=== PATIENT | male | born 1945 | race American Indian/Alaskan Native ===

== ENCOUNTER 2018-03-27 07:10 | Emergency (ER) | payer OTHER ==
[~2018-03-27] VITALS: Ht 175.3 cm; Wt 79.4 kg
[~2018-03-27 07:10] MED LIST: AMLO10 PO; ASCO500 PO; ASPI81EC PO; ATOR20 PO; Augmentin 875-1 EACH PO; BUME2 PO; CALCAVITD PO; CHOL10002 PO; FISH1000 PO; FURO40 PO; GARLIC; IRON150C PO; Jantoven5 MG PO; MAGOXI400 PO; METO25ER PO; MULVITB&C PO; NIAC500 PO; ONDA4 PO; POTCHL10ER PO; Polytrim Eye Dr10 ML BOTHEYES; RANI150 PO; SELENIUM200 MC1 PO; SIMV10 PO; Super B Comple150 MG PO; TAMS.4ER PO; TOCO1000 PO; TOCO400 PO
[2018-03-27] MEDS ORDERED: Polytrim Eye Dr10 ML BOTHEYES (08:53)
== END 2018-03-27 09:07 | disposition home or self-care (01) ==
LOC: ER 07:10
DX: J02.9 Acute pharyngitis, unspecified (principal); H10.021 Other mucopurulent conjunctivitis, right eye; I10 Essential (primary) hypertension; Z79.899 Other long term (current) drug therapy; Z79.01 Long term (current) use of anticoagulants
CPT/HCPCS: 71046; 87081; 87430; 99283; J1100

== ENCOUNTER → 2020-07-05 | Outpatient (CLI) | payer OTHER | END | disposition home or self-care (01) | LOC: PLD 12:51 → LAB SHORT 12:51 | DX: R23.4 Changes in skin texture (principal) | CPT/HCPCS: 88305 ==

== ENCOUNTER → 2022-04-15 | Outpatient (CLI) | payer OTHER ==
[2022-04-15 14:09] LABS: Albumin, Blood 3.7 g/dL (3.4-5.0); Albumin/Globulin Ratio 1.2 (0.8-1.8); Bilirubin, Direct 0.1 mg/dL (0.0-0.3); Bilirubin, Indirect 0.4 mg/dL (0.1-0.7); Bilirubin, Total 0.5 mg/dL (0.1-1.0); Bun/Creatinine Ratio 17.9 (12.0-20.0); Calcium, Blood 9.1 mg/dL (8.5-10.1); Creatinine, Blood 0.78 mg/dL (0.60-1.20); Potassium, Blood 4.2 mmol/L (3.5-5.5); Total Protein, Blood 6.7 g/dL (6.4-8.2)
[2022-04-15 14:43] LABS: Percent Saturation 19.9 % (20.0-50.0)
== END ==
LOC: LAB SHORT 13:21
PROVIDERS: Internal Medicine Hematology & Oncology
DX: E85.9 Amyloidosis, unspecified (principal); D64.9 Anemia, unspecified; E53.8 Deficiency of other specified B group vitamins
CPT/HCPCS: 80053; 82248; 82607; 82728; 82746; 83540; 83550

== ENCOUNTER → 2022-08-22 | Outpatient (CLI) | payer OTHER ==
[2022-08-22 14:59] LABS: BASOPHILS ABSOLUTE AUTO 0.04 K/mm3 (0.00-0.23); BASOPHILS PERCENT AUTO 0 % (0-2); EOSINOPHILS ABSOLUTE AUTO 0.04 K/mm3 (0.00-0.68); EOSINOPHILS PERCENT AUTO 0 % (0-6); Hemoglobin 14.6 g/dL (13.5-17.5); IMMATURE GRAN ABSOLUTE AUTO 0.07 K/mm3 (0.00-0.10); IMMATURE GRAN PERCENT AUTO 1 % (0-1); LYMPHOCYTES ABSOLUTE AUTO 1.12 K/mm3 (0.84-5.20); LYMPHOCYTES PERCENT AUTO 9 % (21-46); MONOCYTES ABSOLUTE AUTO 1.05 K/mm3 (0.16-1.47); MONOCYTES PERCENT AUTO 8 % (4-13); Mean Corpuscular HGB 31.8 pg (26.0-34.0); Mean Corpuscular HGB Conc 34.8 g/dL (31.5-36.5); Mean Corpuscular Volume 92 fL (80-100); Mean Platelet Volume 10.3 fL (9.1-12.4); NEUTROPHILS ABSOLUTE AUTO 10.28 K/mm3 (1.96-9.15); NEUTROPHILS PERCENT AUTO 82 % (41-73); Platelet Count 190 K/mm3 (150-400); RDW Coefficient Variation 13.4 % (11.7-14.2); Red Blood Cell Count 4.59 M/mm3 (4.30-5.90)
[2022-08-22 15:11] LABS: Albumin, Blood 3.7 g/dL (3.4-5.0); Albumin/Globulin Ratio 0.9 (0.8-1.8); Bilirubin, Total 0.8 mg/dL (0.1-1.0); Bun/Creatinine Ratio 12.4 (12.0-20.0); Creatinine, Blood 1.13 mg/dL (0.60-1.20); Globulin, Blood 3.9 g/dL (2.2-4.0); Potassium, Blood 3.8 mmol/L (3.5-5.5); Total Protein, Blood 7.6 g/dL (6.4-8.2)
== END | disposition home or self-care (01) ==
LOC: LAB SHORT 14:53 → LAB 14:53
PROVIDERS: General Practice
DX: E11.9 Type 2 diabetes mellitus without complications (principal); R10.31 Right lower quadrant pain
CPT/HCPCS: 80053; 82150; 83036; 85025

== ENCOUNTER 2022-09-03 22:57 | Inpatient (IN) | payer OTHER ==
[~2022-09-03] VITALS: Ht 175.3 cm; Wt 80.1 kg
[2022-09-03 23:16] LABS: PCO2 Arterial 35.6 mmHg (35-45); PO2 Arterial 68.8 mmHg (80-100); pH Blood Arterial 7.45 (7.35-7.45)
[2022-09-03 23:20] LABS: BASOPHILS ABSOLUTE AUTO 0.06 K/mm3 (0.00-0.23); BASOPHILS PERCENT AUTO 1 % (0-2); EOSINOPHILS ABSOLUTE AUTO 0.11 K/mm3 (0.00-0.68); EOSINOPHILS PERCENT AUTO 1 % (0-6); Hemoglobin 12.4 g/dL (13.5-17.5); IMMATURE GRAN ABSOLUTE AUTO 0.09 K/mm3 (0.00-0.10); IMMATURE GRAN PERCENT AUTO 1 % (0-1); LYMPHOCYTES ABSOLUTE AUTO 1.33 K/mm3 (0.84-5.20); LYMPHOCYTES PERCENT AUTO 11 % (21-46); MONOCYTES ABSOLUTE AUTO 0.86 K/mm3 (0.16-1.47); MONOCYTES PERCENT AUTO 7 % (4-13); Mean Corpuscular HGB 31.5 pg (26.0-34.0); Mean Corpuscular HGB Conc 33.5 g/dL (31.5-36.5); Mean Corpuscular Volume 94 fL (80-100); NEUTROPHILS PERCENT AUTO 80 % (41-73); Platelet Count 254 K/mm3 (150-400); RDW Coefficient Variation 13.2 % (11.7-14.2); RDW Standard Deviation 45.6 fL (35.1-46.3); Red Blood Cell Count 3.94 M/mm3 (4.30-5.90); White Blood Cell Count 11.95 K/mm3 (4.00-11.30)
[2022-09-03 23:43] LABS: Albumin, Blood 3.4 g/dL (3.4-5.0); Albumin/Globulin Ratio 0.9 (0.8-1.8); Bilirubin, Total 0.5 mg/dL (0.1-1.0); Bun/Creatinine Ratio 24.1 (12.0-20.0); Creatinine, Blood 1.08 mg/dL (0.60-1.20); Globulin, Blood 3.9 g/dL (2.2-4.0); Potassium, Blood 3.6 mmol/L (3.5-5.5); Total Protein, Blood 7.3 g/dL (6.4-8.2)
[2022-09-03] MEDS ORDERED: AMLO5 PO (23:47)
[2022-09-03] MEDS ORDERED: METF500 PO (23:47)
[2022-09-03] MEDS ORDERED: OMEP20ER PO (23:48)
[2022-09-04 00:21] LABS: Influenza B, PCR NEGATIVE (NEGATIVE); Resp Syncytial Virus, PCR NEGATIVE (NEGATIVE); SARS-Cov-2 (COVID-19) PCR, MMC NEGATIVE (NEGATIVE)
[2022-09-04 00:34] LABS: Influenza A, PCR POSITIVE (NEGATIVE)
--- NOTE | 2022-09-04 03:14 | NUR ---
ARRIVAL TO PCU PT BROUGHT TO PCU VIA GURNEY AND ASSISTED OVER TO PCU BED. PT IS A&OX4 WITH PLEASANT AFFECT. HE PARTICIPATES IN CONVERSATION AND ASSISTS WITH CARE. PT ABLE TO REPOSITION SELF INDEPENDENTLY. HE IS ON 4.5L NC WITH SPO2 >93% WITH RR 15-22. HE DENIES SOB AND STS "I FEEL LIKE MY BREATHING IS SO MUCH BETTER ALREADY". PT ON BIPAP IN ED WITH SETTINGS 16/10 FIO2 35%. BIPAP AT BEDSIDE IF NEEDED. LUNGS ARE CLEAR IN UPPER LOBES, DIMINISHED/COARSE IN LOWER LOBES. AFIB WITH LBBB ON MONITOR WITH RATE 90S. BP STABLE WITH MAP >65. PT DENIES CP OR PALPITATIONS. BOWEL TONES HYPOACTIVE, ABDOMEN SOFT. PT REPORTS LAST MEAL WAS THANKSGIVING DINNER AND LAST BM YESTERDAY. PT OFFERED URINAL BUT HAS NOT VOIDED YET. SKIN IS C/D/I. 18G PIV TO LAC. ICE WATER PROVIDED. BED IN LOWEST POSITION, CALL LIGHT WITHIN REACH.
[2022-09-04 03:51] LABS: BASOPHILS ABSOLUTE AUTO 0.02 K/mm3 (0.00-0.23); BASOPHILS PERCENT AUTO 0 % (0-2); EOSINOPHILS PERCENT AUTO 0 % (0-6); Hematocrit 34.4 % (37.0-53.0); Hemoglobin 11.6 g/dL (13.5-17.5); IMMATURE GRAN ABSOLUTE AUTO 0.05 K/mm3 (0.00-0.10); IMMATURE GRAN PERCENT AUTO 1 % (0-1); LYMPHOCYTES ABSOLUTE AUTO 0.35 K/mm3 (0.84-5.20); LYMPHOCYTES PERCENT AUTO 4 % (21-46); MONOCYTES ABSOLUTE AUTO 0.15 K/mm3 (0.16-1.47); MONOCYTES PERCENT AUTO 2 % (4-13); Mean Corpuscular HGB 31.4 pg (26.0-34.0); Mean Corpuscular HGB Conc 33.7 g/dL (31.5-36.5); Mean Corpuscular Volume 93 fL (80-100); Mean Platelet Volume 10.1 fL (9.1-12.4); NEUTROPHILS ABSOLUTE AUTO 8.46 K/mm3 (1.96-9.15); NEUTROPHILS PERCENT AUTO 94 % (41-73); Platelet Count 208 K/mm3 (150-400); RDW Coefficient Variation 13.2 % (11.7-14.2); RDW Standard Deviation 45.2 fL (35.1-46.3); Red Blood Cell Count 3.69 M/mm3 (4.30-5.90); White Blood Cell Count 9.03 K/mm3 (4.00-11.30)
[2022-09-04 04:26] LABS: Albumin, Blood 3.2 g/dL (3.4-5.0); Albumin/Globulin Ratio 0.8 (0.8-1.8); Bilirubin, Total 0.5 mg/dL (0.1-1.0); Bun/Creatinine Ratio 27.1 (12.0-20.0); Calcium, Blood 8.9 mg/dL (8.5-10.1); Globulin, Blood 3.8 g/dL (2.2-4.0); Potassium, Blood 4.5 mmol/L (3.5-5.5)
--- NOTE | 2022-09-04 05:37 | NUR ---
SHIFT SUMMARY PT REMAINS A&OX4 AND SLEPT FOR A SHORT PERIOD THIS SHIFT. HE REMAINS ON 4.5L NC WITH SPO2 >93%. HE CONTINUES TO DENY SOB. AFIB WITH LBBB ON MONITOR WITH RATE 80S. DENIES CP. ELEVATED TROPONIN WITH MORNING LABS. DR QUINTANA NOTIFIED AND ORDERS RECEIVED. PLAN TO START HEPARIN GTT. CARDIOLOGY CONSULTED. BED IN LOWEST POSITION, CALL LIGHT WITHIN REACH. CONTINUING TO MONITOR AT THIS TIME.
[2022-09-04 06:04] LABS: CHOL/HDL RATIO 4.3; Cholesterol 179 mg/dL (50-200); HDL Cholesterol 42 mg/dL (>39); LDL/HDL RATIO 2.9; Low Density Lipoprotein Chol 121 mg/dL (0-110); Triglycerides 80 mg/dL (30-160); Very Low Density Lipoprot Chol 16 mg/dL (6-32)
[2022-09-04 07:03] LABS: Anti-Xa UFH, PHA Monitoring <0.10 IU/mL; International Normalized Ratio 1.13; Prothrombin Time Results 11.8 Sec (9.7-11.5)
--- NOTE | 2022-09-04 09:23 | NUR ---
Assumed care of pt at 0700. Report received from Fany CHILDRESS. Pt A&O x 4. Answers questions, follows commands, verbalizes needs. Pleasant and cooperative with care. Denies chest pain. Consult out to Dr Em. Pt is currently NPO until plan is given by cardiology. Heparin drip per orders. Pt in droplet isolation for Influenza A.
--- NOTE | 2022-09-04 18:31 | NUR ---
SUMMARY Neuro/Musc/Psych: A&O x 4. Answers questions, follows commands, verbalizes needs. Pleasant and cooperative with care. Able to stand and use bedside commode. Spouse visited for majority of day. Resp: Lungs clear, dim in bases. Initially on 4.5 LPM NC. Currently on room air. Continuous oximetry in place. SpO2 90% or greater. Dry cough. Cardiac: Afib, rate in 80s. Earlier had tachycardia after drinking coffee. Pt noted he had been drinking less water than typical. Encouraged PO intake of fluids and he rate has been stable since. Denies chest pain. GI//Skin: No changes since initial assessment Remains PCU status, overall, pt states he feels back to his typically self and looks forward to going home soon.
--- NOTE | 2022-09-04 20:00 | NUR ---
ASSUMED CARE OF PT AT 1915. REPORT RECEIVED INSIDE DOORWAY TO ROOM. PT WAS AWAKE AND ACKNOWLEDGE REPORT. PT ALERT AND ORIENTED. PLEASANT AND COOPERATIVE WITH CARE AND ASSESSMENT. NO COMPLAINTS OF CHEST PAIN. DOES HAVE DRY COUGH WHEREAS HE BECOMES DYSPNEIC. DID REQUIRE 2 L/M O2 TO BE PLACED. WILL REVIEW CHART AND PLAN OF CARE FOR THIS PT.
--- NOTE | 2022-09-04 23:38 | NUR ---
PT WAS USING HIS URINAL AND UNFORTUANATELY SPILLED. DID REQUIRE FULL BED CHANGE WITH BEDBATH DONE. STARTED 18 GAUGE IV IN RIGHT FOREARM SECONDARY TO ADDITION IV ACCESS NEED. ZITHROMYCIN AND ROCEPHIN INFUSED. DID ADMINISTER SOLUMEDROL THROUGH IV WELL. PT DOES STATE THAT WITH ZITHROMAX, HIS SITE WAS SOMEWHAT TENDER. SLOWED ZITHROMAX RATE SLOWER WHICH PT STATES HAS HELPED. IV CONTINUES TO EASILY DRAW BLOOD. WILL CONTINUE TO MONITOR. TEACHING DONE ON SELF AWARENESS OF REACTION TO ANTIBIOTIC THERAPIES.
--- NOTE | 2022-09-05 03:32 | NUR ---
PT CONTINUES ON HEPARIN DRIP. HAS NO COMPLAINTS OF CHEST PAIN OR PRESSURE. O2 ON AT 4 L/M WHILE SLEEPING TO MAINTAIN > 90 PERCENT SATURATIONS. WILL CONTINUE TO MONITOR PT.
--- NOTE | 2022-09-05 06:28 | NUR ---
PT HAS HAD GOOD OUTPUT FROM PATTEN CATHETER. HAS BEEN ABLE TO SLEEP SOME. NO COMPLAINTS OF CHEST PAIN OR PRESSURE. REMAINS ON ROOM AIR AND MAINTAINS > 90 PERCENT SATURATION. MEDICATED PT WITH 10 MG HYDRALAZINE FOR SBP > 170. RECHECK SHOWS SBP 150'S. PT HAS BEEN ABLE TO MOVE ABOUT BED ON HIS OWN. NPO SINCE 0 PENDING PROBABLE ANGIOGRAM. WILL CONTINUE TO MONITOR PT, AND WILL REPORT OFF TO ONCOMING RN.
--- NOTE | 2022-09-05 06:34 | NUR ---
PT HAS BEEN ABLE TO REST SOME THIS NIGHT. HAS HAD LESS EPISODES OF HACKY TYPE COUGH. 4 L/M O2 WHILE ASLEEP TO MAINTAIN SATURATIONS > 90 PERCENT. WHEN PT IS AWAKE HAS MUCH LESS O2 DEMAND. CONTINUES ON HEPARIN DRIP WHICH IS MANAGED BY PHARMACY. HAVE BEEN ABLE TO DO BLOOD DRAWS FROM NEW 18 GAUGE IV. PT VOIDS Q.S. WILL CONTINUE TO MONITOR PT, AND WILL REPORT OFF TO ONCOMING RN.
--- NOTE | 2022-09-05 17:08 | NUR ---
SHIFT SUMMARY PT REMAINS ALERT AND ORIENTED. BP STABLE. HR REMAINS AFIB 90'S. O2 TITRATED DOWN TO 2L NC WITH SATS >90%. PT HAS DENIED ANY PAIN THIS SHIFT. PT UP TO RECLINER MOST OF SHIFT. PT ABLE TO VOID USING THE URINAL. WILL CONTINUE TO MONITOR AND REPORT TO ONCOMING RN
--- NOTE | 2022-09-06 02:11 | NUR ---
UPDATE PT'S HR HAS SLOWLY DECREASED OVER THE COURSE OF THE SHIFT FROM THE 80'S-90'S TO HOLDING STEADILY IN THE 50-60'S. HOWEVER PT HR HAS HAD EPISODES WHERE IT HAS TOUCHED INTO THE 40'S. PT APPEARS TO BE ASYMPOMATIC FOR HE DOES NOT REPORT ANY DIZZYNESS, WEAKNESS, OR LIGHTHEADNESS. NO CP OR PRESSURE REPORTED WELL. AN EKG WAS ALSO CONDUCTED THAT SHOWS AFIB WITH SLOW VENTRICULAR RESPONSE. DR. QUINTANA NOTIFIED WHO ORDERED A FOLLOW UP EKG IN THE AM AND TO CONTINUE TO MONITOR THE PT. NO FUTHER ORDERS FROM MD AT THIS TIME
[2022-09-06 03:25] LABS: BASOPHILS PERCENT AUTO 0 % (0-2); EOSINOPHILS PERCENT AUTO 0 % (0-6); Hematocrit 31.7 % (37.0-53.0); Hemoglobin 10.7 g/dL (13.5-17.5); IMMATURE GRAN ABSOLUTE AUTO 0.03 K/mm3 (0.00-0.10); IMMATURE GRAN PERCENT AUTO 0 % (0-1); LYMPHOCYTES ABSOLUTE AUTO 1.23 K/mm3 (0.84-5.20); LYMPHOCYTES PERCENT AUTO 15 % (21-46); MONOCYTES ABSOLUTE AUTO 0.36 K/mm3 (0.16-1.47); MONOCYTES PERCENT AUTO 4 % (4-13); Mean Corpuscular HGB 31.6 pg (26.0-34.0); Mean Corpuscular HGB Conc 33.8 g/dL (31.5-36.5); Mean Corpuscular Volume 94 fL (80-100); Mean Platelet Volume 9.9 fL (9.1-12.4); NEUTROPHILS ABSOLUTE AUTO 6.85 K/mm3 (1.96-9.15); NEUTROPHILS PERCENT AUTO 81 % (41-73); Platelet Count 199 K/mm3 (150-400); RDW Coefficient Variation 13.7 % (11.7-14.2); RDW Standard Deviation 47.1 fL (35.1-46.3); Red Blood Cell Count 3.39 M/mm3 (4.30-5.90); White Blood Cell Count 8.47 K/mm3 (4.00-11.30)
[2022-09-06 03:48] LABS: Albumin, Blood 2.7 g/dL (3.4-5.0); Albumin/Globulin Ratio 0.8 (0.8-1.8); Bilirubin, Total 0.2 mg/dL (0.1-1.0); Bun/Creatinine Ratio 29.7 (12.0-20.0); Calcium, Blood 8.6 mg/dL (8.5-10.1); Creatinine, Blood 0.94 mg/dL (0.60-1.20); Globulin, Blood 3.3 g/dL (2.2-4.0); Potassium, Blood 4.4 mmol/L (3.5-5.5)
--- NOTE | 2022-09-06 06:28 | NUR ---
SHIFT SUMMARY PT IS A/Ox4 AND IS COOPERATIVE WITH CARE PROVIDED BY STAFF. HR HAS FLUCTUATED T/O THE NIGHT STARTING IN THE 80-90'S AND THEN DROPPING DOWN TO THE 40-60'S TOWARDS THE MIDDLE OF THE SHIFT. PT DOES NOT REPORT ANY DIZZYNESS, WEAKNESS, OR LIGHTHEADEDNESS. BP REMAINED STABLE T/O THE SHIFT. EKG WAS CONDUCTED. MD WAS NOTIFIED AND ORDERED FOLLOW UP EKG THIS AM AND TO CONTINUE TO MONITOR THE PT. RESPIRATORY ALANIS, PT HAS MAINTAINED SPO2 >94% ON 1L OF O2 VIA NC WITH NO SOB OR DYSPNEA REPORTED. HEPARIN gtt CONTINUED T/O THE NIGHT ORDERD PER EMAR. PT USES URINAL INDEPENDENTLY AND HAD GOOD URINE OUTPUT. MORNING LABS SHOWED BNP CONTINUES TO TREND UP. NADN T/O THE SHIFT
--- NOTE | 2022-09-06 17:21 | NUR ---
SHIFT SUMMARY PT REMAINS ALERT AND ORIENTED. HR HAS BEEN AFIB ALL SHIFT IN THE 70-80'S. PT UP TO URINATE THIS SHIFT AND HEART RATE INCREASED TO 160'S, BUT WITHIN 1 MINUTE CAME BACK DOWN TO THE 90'S. AFTER THAT, PT WAS ABLE TO TOLERATE WALKING TO THE BATHROOM WITHOUT INCREASE IN HEART RATE. PT TOLERATED SHOWER THIS SHIFT. PT TITRATED DOWN TO ROOM AIR WITH SATS REMAINING ABOVE 90%. PT HAS DENIED PAIN ALL SHIFT. WILL CONTINUE TO MONITOR AND REPORT TO ONCOMING RN
--- NOTE | 2022-09-06 22:40 | NUR ---
UPDATE CBG THIS PM CAME BACK 352. INSULIN WAS GIVEN ORDERED PER EMAR. DR. PEREZ NOTIFIED. ORDED REPEAT GLUCOSE CHECK AT [facility] AND TO NOTIFY HER OF THE RESULTS.
--- NOTE | 2022-09-06 23:22 | NUR ---
UPDATE PT SAT UP/DANGLED TO VOID IN TO THE URINAL WHEN HIS HR JUMPED UP TO 180'S AND OCCASIONALLY TOUCHED THE MID 190'S. THIS EVENT LASTED ONLY A LITTLE OVER TWO MINUTES. PT APPEARED TO BE ASYMPTOMATIC OF THE EVENT FOR HE DID NOT COMPLAIN OF ANY DIZZYNESS, LIGHTHEADEDNESS, CP OR PRESSURE. BP REMAINED STABLE WITH SBP IN THE 140'S. HE WAS LUCID AND HELD A CONVERSATION WIH ME THE WHOLE TIME PT HR STARTED TO TREND DOWN TO THE 160'S AND ONCE HE LAID DOWN HIS HR RETURNED TO THE 70-100'S. DR. PEREZ WAS NOTIFIED OF THE EVENT. MD ORDERED TO CONTINUE TO MONITOR THE PT AND TO NOTIFIY HER IF EVENT REOCCURS.
--- NOTE | 2022-09-07 04:43 | NUR ---
SHIFT SUMMARY PT IS A/Ox4 AND IS COOPERATIVE WITH CARE PROVIDED BY STAFF. HR CONTINUES TO VARY T/O THE NIGHT STARTING IN THE 80-100'S AND THEN DROPPING DOWN TO THE 50-60'S. FURTHER MORE, PT HAD AN EPISODE WHEN HE WAS ATTEMPTING TO USE THE URINAL WHERE HIS HR JUMPED TO THE 180'S AND EVEN TOUCHED THE 190'S. MD WAS NOTIFIED AND PT APPEARED ASYMPOMATIC HOWEVER. SEE UPDATE NOTED DETAILING EVENT. BP HAS REMAINED STABLE T/O THE SHIFT WITH NO COMPLAINTS OF CP OR PRESSURE. MAINTAINED SPO2 >94% ON RA WITH SOME SOB WITH AMBULATION. PT ALSO DESATS WITH ABULATION, BUT RECOVERS QUICKLY. PT USES URINAL INDEPENDENTLY AND HAD GOOD URINE OUTPUT. NADN T/O THE SHIFT
[2022-09-07 05:21] LABS: BASOPHILS ABSOLUTE AUTO 0.01 K/mm3 (0.00-0.23); BASOPHILS PERCENT AUTO 0 % (0-2); EOSINOPHILS ABSOLUTE AUTO 0.01 K/mm3 (0.00-0.68); EOSINOPHILS PERCENT AUTO 0 % (0-6); Hematocrit 33.7 % (37.0-53.0); Hemoglobin 11.5 g/dL (13.5-17.5); IMMATURE GRAN ABSOLUTE AUTO 0.07 K/mm3 (0.00-0.10); IMMATURE GRAN PERCENT AUTO 1 % (0-1); LYMPHOCYTES ABSOLUTE AUTO 1.51 K/mm3 (0.84-5.20); LYMPHOCYTES PERCENT AUTO 17 % (21-46); MONOCYTES ABSOLUTE AUTO 0.43 K/mm3 (0.16-1.47); MONOCYTES PERCENT AUTO 5 % (4-13); Mean Corpuscular HGB 31.5 pg (26.0-34.0); Mean Corpuscular HGB Conc 34.1 g/dL (31.5-36.5); Mean Corpuscular Volume 92 fL (80-100); Mean Platelet Volume 10.5 fL (9.1-12.4); NEUTROPHILS ABSOLUTE AUTO 7.02 K/mm3 (1.96-9.15); NEUTROPHILS PERCENT AUTO 78 % (41-73); Platelet Count 214 K/mm3 (150-400); RDW Coefficient Variation 13.2 % (11.7-14.2); RDW Standard Deviation 45.1 fL (35.1-46.3); Red Blood Cell Count 3.65 M/mm3 (4.30-5.90); White Blood Cell Count 9.05 K/mm3 (4.00-11.30)
[2022-09-07 05:46] LABS: Bun/Creatinine Ratio 30.3 (12.0-20.0); Calcium, Blood 8.9 mg/dL (8.5-10.1); Creatinine, Blood 0.99 mg/dL (0.60-1.20); Potassium, Blood 4.3 mmol/L (3.5-5.5)
--- NOTE | 2022-09-07 08:45 | NUR ---
UPDATE PT UP TO BATHROOM WITH SBA. HEART RATE INCREASED TO THE 170'S. PT STATES FEELING DIZZY. HEART RATE BACK DOWN TO 90'S WITHIN MINUTES. SPOKE WITH CARBON CAPTURE POWER PLANT ENGINEER AND NEW ORDERS FOR METOPROLOL PLACED. WILL MEDICATED PER EMAR.
--- NOTE | 2022-09-07 17:27 | NUR ---
SHIFT SUMMARY PT REMAINS ALERT AND ORIENTED. SATS REMAIN ABOVE 90% ON RA. BP STABLE. HR AFIB 80'S AT REST. WITH ACTIVITY, HEART RATE INCREASES TO 130'S AT TIMES, BUT COMES DOWN TO 80'S WITHIN MINUTES. PT DENIES ANY PAIN. PT STATES HE WOULD FEEL MORE COMFORTABLE STAYING TONIIGHT AND DISCHARGING TOMORROW. WILL CONTINUE TO MONITOR AND REPORT TO ONCOMING RN
[2022-09-08 04:48] LABS: BASOPHILS ABSOLUTE AUTO 0.01 K/mm3 (0.00-0.23); BASOPHILS PERCENT AUTO 0 % (0-2); EOSINOPHILS ABSOLUTE AUTO 0.02 K/mm3 (0.00-0.68); EOSINOPHILS PERCENT AUTO 0 % (0-6); Hematocrit 37.7 % (37.0-53.0); IMMATURE GRAN ABSOLUTE AUTO 0.11 K/mm3 (0.00-0.10); IMMATURE GRAN PERCENT AUTO 1 % (0-1); LYMPHOCYTES ABSOLUTE AUTO 1.73 K/mm3 (0.84-5.20); LYMPHOCYTES PERCENT AUTO 17 % (21-46); MONOCYTES ABSOLUTE AUTO 0.49 K/mm3 (0.16-1.47); MONOCYTES PERCENT AUTO 5 % (4-13); Mean Corpuscular HGB 31.4 pg (26.0-34.0); Mean Corpuscular HGB Conc 34.5 g/dL (31.5-36.5); Mean Corpuscular Volume 91 fL (80-100); Mean Platelet Volume 10.3 fL (9.1-12.4); NEUTROPHILS ABSOLUTE AUTO 7.97 K/mm3 (1.96-9.15); NEUTROPHILS PERCENT AUTO 77 % (41-73); Platelet Count 242 K/mm3 (150-400); RDW Coefficient Variation 13.1 % (11.7-14.2); RDW Standard Deviation 43.3 fL (35.1-46.3); Red Blood Cell Count 4.14 M/mm3 (4.30-5.90); White Blood Cell Count 10.33 K/mm3 (4.00-11.30)
[2022-09-08 05:04] LABS: Bun/Creatinine Ratio 29.4 (12.0-20.0); Creatinine, Blood 0.99 mg/dL (0.60-1.20); Potassium, Blood 4.1 mmol/L (3.5-5.5)
--- NOTE | 2022-09-08 06:19 | NUR ---
ORNAMENTAL METALWORK DESIGNER SUMMARY PT IS ALERT AND ORIENTED COMMUNICATING APPROPRIATELY W STAFF. PT'S TELE SHOWING AFIB 60'S WHILE AT REST BUT EACH TIME HE STOOD TO USE HIS URINAL HIS HR JUMPED BETWEEN 170-200, PT ASYMPTOMATIC AT THIS TIME DENYING ANY PALPATAIONS OR DIZZINESS. BP STABLE THIS SHIFT. O2 SATS >92% ON RM AIR THIS SHIFT. PT AFEBRILE THIS SHIFT. PT ABLE TO SLEEP COMFORTABLY FOR MOST OF THE SHIFT W CALL LIGHT WITHIN REACH. WILL REPORT TO ONCOMING RN.
--- NOTE | 2022-09-08 08:58 | NUR ---
0844 - Notified Dr. Henry at bedside of pt with HR into 180s with ambulation and new ST alarms this morning. Pt initially denied chest pain but endorsed "twinge" while MD in room. Orders received for EKG. Other VSS
[2022-09-08] MEDS ORDERED: ATOR40TA PO (13:59)
[2022-09-08] MEDS ORDERED: ELIQUIS5 M2 PO (13:59)
[2022-09-08] MEDS ORDERED: AZIT500 PO (14:00)
[2022-09-08] MEDS ORDERED: NITR.4SL SL (14:01)
[2022-09-08] MEDS ORDERED: LISI5 PO (14:01)
[2022-09-08] MEDS ORDERED: FURO40 PO (14:01)
[2022-09-08] MEDS ORDERED: AMOCLA875 PO (14:01)
[2022-09-08] MEDS ORDERED: SPIR25 PO (14:02)
[2022-09-08] MEDS ORDERED: PRED20 PO (14:02)
--- NOTE | 2022-09-08 15:56 | NUR ---
1248 - SPOKE W/ DR SMALLS TO CONFIRM PLAN TO DISCHARGE AND FOLLOW UP WITH THIS MORNINGS EKG. PER MD D/C ORDERS TO BE PUT IN. 9835 - D/C ORDERS COMPLETE, MEDICATIONS SENT TO [facility] PER PT REQUEST. ALL DISCHARGE INSTRUCTIONS WENT OVER AT BEDSIDE BY THIS RN WITH PT AND SPOUSE. PT AND S/O VOICED UNDERSTANDING AND ALL QUESTIONS ANSWERED. IV REMOVED AND PT ESCORTED VIA WHEELCHAIR TO PERSONAL VEHICLE BY ANG GUNDERSON CNA.
== END 2022-09-08 15:01 | disposition home or self-care (01) | DRG 193 ==
LOC: ER 22:57 → PCU 09-04 02:48
PROVIDERS: Family Medicine; Hospitalist; Student in an Organized Health Care Education/Training Program; ADMIT Internal Medicine
PROC: 5A09357 Assistance with Respiratory Ventilation, Less than 24 Consecutive Hours, Continuous Positive Airway Pressure (ICD-10-PCS; principal; 2022-09-04)
DX: J10.01 Influenza due to other identified influenza virus with the same other identified influenza virus pneumonia (principal); I21.A1 Myocardial infarction type 2; J96.01 Acute respiratory failure with hypoxia; J44.0 Chronic obstructive pulmonary disease with (acute) lower respiratory infection; J44.1 Chronic obstructive pulmonary disease with (acute) exacerbation; I48.20 Chronic atrial fibrillation, unspecified; Z94.81 Bone marrow transplant status; I42.9 Cardiomyopathy, unspecified; I50.22 Chronic systolic (congestive) heart failure; Z20.822 Contact with and (suspected) exposure to COVID-19; I11.0 Hypertensive heart disease with heart failure; E11.9 Type 2 diabetes mellitus without complications; K21.9 Gastro-esophageal reflux disease without esophagitis; E78.5 Hyperlipidemia, unspecified; Z85.820 Personal history of malignant melanoma of skin; I25.10 Atherosclerotic heart disease of native coronary artery without angina pectoris; M19.90 Unspecified osteoarthritis, unspecified site; Z90.49 Acquired absence of other specified parts of digestive tract; Z87.891 Personal history of nicotine dependence; Z79.899 Other long term (current) drug therapy; Z79.84 Long term (current) use of oral hypoglycemic drugs; I08.0 Rheumatic disorders of both mitral and aortic valves; I44.7 Left bundle-branch block, unspecified; Z28.21 Immunization not carried out because of patient refusal
CPT/HCPCS: 0241U; 36415; 36600; 71045; 71046; 80048; 80053; 80061; 82803; 82947; 83036; 83605; 83880; 84443; 84484; 85025; 85520; 85610; 87040; 93005; 93010; 93306; 93308; 93321; 94644; 94660; 94664; 94762; 96374; 96375; 97116; 97161; 99285-25; A9270; J0456; J0696; J1644; J2930; J7050; J7512

== ENCOUNTER 2022-10-14 06:06 | Day surgery (SDC) | payer OTHER ==
[~2022-10-14] VITALS: Ht 175.3 cm; Wt 79.0 kg
[~2022-10-14 06:06] MED LIST changes: +AMLO5 PO; +AMOCLA875 PO; +ATOR40TA PO; +AZIT500 PO; +ELIQUIS5 M2 PO; +FERSU300 PO; +LISI5 PO; +METF500 PO; +NITR.4SL SL; +OMEP20ER PO; +PRED20 PO; +SPIR25 PO; +VITAMIN C 500500 MG PO
[2022-10-14] MEDS ORDERED: CLOP75 PO (11:38)
--- NOTE | 2022-10-14 14:43 | NUR ---
DISCHARGE REVIEWED WITH PT AND , BOTH VERBALIZE UNDERSTANDING OF INSTRUCTIONS. PT RADIAL SITE STABLE.
--- NOTE | 2022-10-14 15:42 | NUR ---
PT DRESSED WITH ASSIST FROM . TR BAND REMOVED AND CLOTH DOT PLACED. SALINE LOCK REMOVED WITH CATHETER INTACT. ARM BOARD AND SLING PLACED TO RIGHT ARM. PT TO AND FROM BATHROOM. PT TO PRIVATE VEHICLE WITH ONE STAFF PEWR W/C. R RADIAL SITE STABLE.
== END 2022-10-14 15:58 | disposition home or self-care (01) ==
LOC: MHTC 06:06
DX: I11.0 Hypertensive heart disease with heart failure (principal); I21.4 Non-ST elevation (NSTEMI) myocardial infarction; R94.31 Abnormal electrocardiogram [ECG] [EKG]; R77.8 Other specified abnormalities of plasma proteins; I50.20 Unspecified systolic (congestive) heart failure; I48.11 Longstanding persistent atrial fibrillation; E78.5 Hyperlipidemia, unspecified; Z87.891 Personal history of nicotine dependence; J44.9 Chronic obstructive pulmonary disease, unspecified; E11.9 Type 2 diabetes mellitus without complications; Z79.84 Long term (current) use of oral hypoglycemic drugs
CPT/HCPCS: 76937; 82947; 85347; 93456; 99152; 99153; A9270; C1725; C1769; C1874; C1887; C1894; C9600; J1644; J2250; J3010; J7030; J7050; Q9967

== ENCOUNTER → 2022-10-19 | Outpatient (CLI) | payer OTHER ==
[~2022-10-19] MED LIST changes: +CLOP75 PO
[2022-10-22 15:10] LABS: A/G RATIO 1.3 (0.7-1.7); ALBUMIN 3.6 g/dL (2.9-4.4); ALPHA-1-GLOBULIN 0.2 g/dL (0.0-0.4); ALPHA-2-GLOBULIN 0.7 g/dL (0.4-1.0); BETA GLOBULIN 0.9 g/dL (0.7-1.3); GAMMA GLOBULIN 1.1 g/dL (0.4-1.8); GLOBULIN, TOTAL 2.9 g/dL (2.2-3.9); IMMUNOGLOBULIN A, QN, SERUM 179 mg/dL (61-437); IMMUNOGLOBULIN G, QN, SERUM 898 mg/dL (603-1613); IMMUNOGLOBULIN M, QN, SERUM 84 mg/dL (15-143); M-SPIKE Not Observed g/dL (Not Observed); PROTEIN, TOTAL, SERUM 6.5 g/dL (6.0-8.5)
== END | disposition home or self-care (01) ==
LOC: LAB 11:30 → LAB SHORT 11:30
PROVIDERS: Internal Medicine Hematology & Oncology
DX: E85.9 Amyloidosis, unspecified (principal)
CPT/HCPCS: 82784; 84165; 86334

== ENCOUNTER → 2023-01-18 | Outpatient (CLI) | payer OTHER | END | disposition home or self-care (01) | LOC: LAB 16:36 → LAB SHORT 16:36 | DX: R10.31 Right lower quadrant pain (principal) | CPT/HCPCS: 87086 ==

== ENCOUNTER 2023-03-15 11:41 | Day surgery (SDC) | payer OTHER ==
[~2023-03-15] VITALS: Ht 175.3 cm; Wt 80.5 kg
[~2023-03-15 11:41] MED LIST changes: +FISH OIL 1,2001 EAC7 PO; +Vitamin B-12100 MCG PO
--- NOTE | 2023-03-15 12:36 | NUR ---
SPOKE WITH PATIENT ABOUT LISTED ALLERGY TO CEFEPIME. PATIENT DENIES ALLERGY TO CEFEPIME AND STATES HE HAS NEVER HAD AN ALLERGIC REACTION TO AN ANTIBIOTIC. CEFEPIME REMOVED FROM ALLERGY LIST.
[2023-03-15 13:13] VITALS: BP 161/81
[2023-03-15] MEDS ORDERED: AMLO10 PO (13:23)
--- NOTE | 2023-03-15 13:37 | NUR ---
in Day Surgery VIA W/C, PT STRUGGLES TO BEAR WEIGHTON LEFT LEG. History, Chart, Medications and Allergies reviewed before start of procedure.Patient confirms NPO status and agrees with scheduled surgery. Patient reports completing Chlorhexadine shower X2 prior to admission to hospital.
--- NOTE | 2023-03-15 13:39 | NUR ---
DR. CHANDLER REPORTS TO RN THAT D/T PT'S NON-COMPLIANCE WITH ANTI-COAGULATION THERAPY, SHE IS CANCELLING CASE. PT HAS NOT TAKE ANY OF HIS PRESCRIBED ELIQUIS OR ASA SINCE "THANKSGIVING TIME". PT STATES THAT HE DIDN'T KNOW WHAT THEY MEDS WERE FOR AND THAT IT CAUSED HIM PAIN AND THE PAIN WENT AWAY WHEN HE STOPPED TAKING THEM AND THAT HE DIDN'T LIKE HOW THE (PAVING BED MAKER) WAS TELLING HIM TO DO THIS AND DO THAT"
--- NOTE | 2023-03-15 13:50 | NUR ---
DR. POLLACK AT TO SEE PT. D/T PT'S CARDIAC STENT'S IN 2022 W/O ANTICOAG, CASE IS CANCELLED. PT INSTRUCTED TO CONTACT HIS THEATRE MANAGER, RE-START MEDS AND F/U FOR KNEE SURGERY IN 2023
== END 2023-03-15 23:08 | disposition home or self-care (01) ==
LOC: ORSCMMR 11:41 → ORD 13:20 → ORSCMMR 16:10 → ORD 16:10 → ORSCMMR 23:08
DX: M17.11 Unilateral primary osteoarthritis, right knee (principal); Z53.9 Procedure and treatment not carried out, unspecified reason
CPT/HCPCS: J0171; J0735; J1100; J1885; J2250; J2370; J2405; J2795; J3010; J7120

== ENCOUNTER → 2023-05-11 | Outpatient (CLI) | payer OTHER ==
[2023-05-11 19:31] LABS: Creatinine Urine 24.4 mg/dL (27.00-270.00); Protein, Urine Quantitative 7.5 mg/dL (0.0-11.9)
[2023-05-11 19:34] LABS: Microalbumin, Urine Quant. 32.6 mg/L (0.000-20.000)
== END | disposition home or self-care (01) ==
LOC: LAB SHORT 05:00 → LAB 05:00 → LAB FUT 05-05 15:05
PROVIDERS: Internal Medicine Nephrology
DX: N18.30 Chronic kidney disease, stage 3 unspecified (principal); D63.1 Anemia in chronic kidney disease; N25.81 Secondary hyperparathyroidism of renal origin; E55.9 Vitamin D deficiency, unspecified; E29.1 Testicular hypofunction; R76.9 Abnormal immunological finding in serum, unspecified; R94.5 Abnormal results of liver function studies; R94.6 Abnormal results of thyroid function studies
CPT/HCPCS: 81050; 82043; 82570; 84156

== ENCOUNTER 2024-08-06 11:52 | Inpatient (IN) | payer OTHER ==
[~2024-08-06] VITALS: Ht 175.3 cm; Wt 78.2 kg
[~2024-08-06 11:52] MED LIST changes: -ALDACTONE25 MG PO; -ASPI81CH PO; -FERREX 150150 M1 PO; -Glucophage 500 mg PO; -LOSARTAN POTAS100 M1 PO; -METO50ER PO; -PRAVASTATIN SOD10 M1 PO; -TRAZ50 PO; -XARELTO15 M1 PO
[2024-08-06 12:41] LABS: BASOPHILS ABSOLUTE AUTO 0.02 K/mm3 (0.00-0.23); BASOPHILS PERCENT AUTO 0 % (0-2); EOSINOPHILS PERCENT AUTO 0 % (0-6); Hematocrit 33.1 % (37.0-53.0); IMMATURE GRAN ABSOLUTE AUTO 0.03 K/mm3 (0.00-0.10); IMMATURE GRAN PERCENT AUTO 0 % (0-1); LYMPHOCYTES PERCENT AUTO 7 % (21-46); MONOCYTES ABSOLUTE AUTO 0.41 K/mm3 (0.16-1.47); MONOCYTES PERCENT AUTO 5 % (4-13); Mean Corpuscular HGB 31.9 pg (26.0-34.0); Mean Corpuscular HGB Conc 33.2 g/dL (31.5-36.5); Mean Corpuscular Volume 96 fL (80-100); Mean Platelet Volume 9.6 fL (9.1-12.4); NEUTROPHILS ABSOLUTE AUTO 7.22 K/mm3 (1.96-9.15); NEUTROPHILS PERCENT AUTO 87 % (41-73); Platelet Count 285 K/mm3 (150-400); RDW Standard Deviation 45.7 fL (35.1-46.3); Red Blood Cell Count 3.45 M/mm3 (4.30-5.90); White Blood Cell Count 8.28 K/mm3 (4.00-11.30)
[2024-08-06 12:59] LABS: Albumin, Blood 2.7 g/dL (3.4-5.0); Albumin/Globulin Ratio 0.6 (0.8-1.8); Bilirubin, Total 0.5 mg/dL (0.1-1.0); Bun/Creatinine Ratio 28.2 (12.0-20.0); Calcium, Blood 9.1 mg/dL (8.5-10.1); Creatinine, Blood 1.17 mg/dL (0.60-1.20); Globulin, Blood 4.2 g/dL (2.2-4.0); Total Protein, Blood 6.9 g/dL (6.4-8.2)
[2024-08-06] MEDS ORDERED: Furosemide 10 MG/ML 10ML Vial IV ONE (13:00)
[2024-08-06] MEDS ORDERED: AMLO10 PO (15:05)
[2024-08-06] MEDS ORDERED: TraZODone HCl 50 MG Tab PO PRN (15:05)
[2024-08-06] MEDS ORDERED: ASPI81CH PO (15:06)
[2024-08-06] MEDS ORDERED: JARDIANCE10 MG PO (15:07)
[2024-08-06] MEDS ORDERED: FURO20 PO (15:09)
[2024-08-06] MEDS ORDERED: LOSARTAN POTAS100 M1 PO (15:10)
[2024-08-06] MEDS ORDERED: Glucophage 500 mg PO (15:11)
[2024-08-06] MEDS ORDERED: METO50ER PO (15:12)
[2024-08-06] MEDS ORDERED: OMEP20ER PO (15:13)
[2024-08-06] MEDS ORDERED: FERREX 150150 M1 PO (15:14)
[2024-08-06] MEDS ORDERED: PRAVASTATIN SOD10 M1 PO (15:15)
[2024-08-06] MEDS ORDERED: XARELTO15 M1 PO (15:16)
[2024-08-06] MEDS ORDERED: ALDACTONE25 MG PO (15:16)
[2024-08-06] MEDS ORDERED: TRAZ50 PO (15:17)
[2024-08-06] MEDS ORDERED: FLU VACC TS2024-25(6MOS UP)/PF 45 MCG/0.5 ML SYRINGE IM SCH (15:25)
[2024-08-06] MEDS ORDERED: MetFORMIN HCl 500 mg PO SCH (17:00)
[2024-08-06] MEDS ORDERED: Furosemide 10 MG/ML 4ML Vial IV SCH (18:00)
[2024-08-06] MEDS ORDERED: Metoprolol Tartrate 1 MG/ML 5 ML VIAL IV ONE ×2 (19:00→22:20)
[2024-08-06] MEDS ORDERED: Metoprolol Succinate 50 MG TABCR PO SCH (21:00)
--- NOTE | 2024-08-06 21:00 | NUR ---
ASSUMPTION OF CARE: PATIENT ARRIVED FROM ED ALERT AND ORIENTED, PATTEN PLACED BY ED ORDER OBTAINED BY DR. JEAN FOR CRITICAL I/O. PATIENT HAS BEEN HR AFIB 120-140'S WAS SUSTAINGIN 140-150 UNTIL HE FELL ASLEEP, OBTAINED A 1 X NOW ORDER FROM DR. JEAN, WAS NOT NEEDED HR SUSTAINED BELOW 120 AFTER METOPROLOL XL STARTED TO BECOME MORE EFFECTIVE. SELFREPOSITIONS IN BED. WAS ON 4.5L VIA NC. RR IN THE MID 20'S DYSPNIC AT REST. PLAN OF CARE CONTINUES.
[2024-08-06 22:00] VITALS: BP 149/90
[2024-08-06 22:30] VITALS: BP 130/101
[2024-08-06 23:00] VITALS: BP 126/86
[2024-08-07] VITALS: BP 141/107
[2024-08-07 03:11] VITALS: BP 126/97
--- NOTE | 2024-08-07 03:25 | NUR ---
EOS: PATIENT REMAINS UNCHAGED FROM ASUMPTION OF CARE HR STILL FLUCTUATES WITH EXERTION DRAMATICALLY 110-140'S BUT AT REST WILL DROP TO LOW 100'S. PATIENT WAS TITRATED DOWN TO 3L SPO2 92-94%. PATIENT RR UNDER 20'S WITH REST. STILL DENIES CHEST PAIN AND PRESSURE. NO ACUTE CONCERNS FROM PATIENT ADJUNCT SPANISH INSTRUCTOR AT THIS TIME. PLAN OF CARE CONTINUES.
[2024-08-07 04:03] LABS: BASOPHILS ABSOLUTE AUTO 0.02 K/mm3 (0.00-0.23); BASOPHILS PERCENT AUTO 0 % (0-2); EOSINOPHILS ABSOLUTE AUTO 0.03 K/mm3 (0.00-0.68); EOSINOPHILS PERCENT AUTO 0 % (0-6); Hemoglobin 11.4 g/dL (13.5-17.5); IMMATURE GRAN ABSOLUTE AUTO 0.06 K/mm3 (0.00-0.10); IMMATURE GRAN PERCENT AUTO 1 % (0-1); LYMPHOCYTES ABSOLUTE AUTO 0.91 K/mm3 (0.84-5.20); LYMPHOCYTES PERCENT AUTO 8 % (21-46); MONOCYTES ABSOLUTE AUTO 0.93 K/mm3 (0.16-1.47); MONOCYTES PERCENT AUTO 9 % (4-13); Mean Corpuscular HGB 32.2 pg (26.0-34.0); Mean Corpuscular HGB Conc 34.5 g/dL (31.5-36.5); Mean Corpuscular Volume 93 fL (80-100); Mean Platelet Volume 9.9 fL (9.1-12.4); NEUTROPHILS PERCENT AUTO 82 % (41-73); Platelet Count 310 K/mm3 (150-400); RDW Coefficient Variation 12.7 % (11.7-14.2); RDW Standard Deviation 43.5 fL (35.1-46.3); Red Blood Cell Count 3.54 M/mm3 (4.30-5.90); White Blood Cell Count 10.95 K/mm3 (4.00-11.30)
[2024-08-07 04:23] LABS: Albumin, Blood 2.6 g/dL (3.4-5.0); Albumin/Globulin Ratio 0.6 (0.8-1.8); Bilirubin, Total 0.5 mg/dL (0.1-1.0); Bun/Creatinine Ratio 29.2 (12.0-20.0); Calcium, Blood 9.3 mg/dL (8.5-10.1); Creatinine, Blood 1.2 mg/dL (0.60-1.20); Potassium, Blood 3.6 mmol/L (3.5-5.5); Total Protein, Blood 6.6 g/dL (6.4-8.2)
--- NOTE | 2024-08-07 05:27 | NUR ---
CHEST PAIN: PATIENT WITH SUDDEN ONSET CHEST PAIN INCREASED RR. SPOKE WITH RESIDENT. EKG OBTAINED. CHEST PAIN WAS SHARP AT 8/10, APPROXIAMTELY 15 MINUTES LATER IS SLOWLY CALMING, 4/10 RESIDENT TO BEDSIDE, WILL CONTINUE TO MONITOR. RESIDENT PLACING ORDERS, AWAITING NEW ORDERS.
[2024-08-07] MEDS ORDERED: Omeprazole 20 MG CapCR PO SCH (06:00)
[2024-08-07] MEDS ORDERED: Aspirin 325 MG Tab PO ONE (07:00)
[2024-08-07 07:36] LABS: Anti-Xa UFH, PHA Monitoring <0.10 IU/mL; International Normalized Ratio 1.05; Prothrombin Time Results 11.2 Sec (9.7-11.5)
[2024-08-07] MEDS ORDERED: Heparin Sodium,Porcine/0.5 NS 500 ML IV SCH (07:45)
[2024-08-07] MEDS ORDERED: Heparin Sodium 5000 Units/ML 1ML MDV IV ONE ×3 (07:45→23:40)
[2024-08-07] MEDS ORDERED: Clopidogrel Bisulfate 300 MG Cap PO ONE (08:10)
[2024-08-07 08:20] VITALS: BP 126/74
[2024-08-07] MEDS ORDERED: Potassium Chloride 10 Meq Tablet SA PO SCH (08:30)
[2024-08-07] MEDS ORDERED: Digoxin 0.25 MG/ML 2ML Amp IV SCH (08:30)
[2024-08-07] MEDS ORDERED: Potassium Chloride 20 MEQ TabCR PO SCH (09:00)
[2024-08-07] MEDS ORDERED: Empagliflozin 10 MG TAB PO SCH (09:00)
[2024-08-07] MEDS ORDERED: Enoxaparin 40 MG/0.4 ML SYR SC SCH (09:00)
[2024-08-07] MEDS ORDERED: Pravastatin Sodium 20 MG Tab PO SCH (09:00)
[2024-08-07] MEDS ORDERED: Losartan Potassium 50 MG Tab PO SCH (09:00)
[2024-08-07] MEDS ORDERED: Iron Polysaccharides Complex 150 MG Cap PO SCH (09:00)
[2024-08-07] MEDS ORDERED: Spironolactone 25 MG Tab PO SCH (09:00)
[2024-08-07] MEDS ORDERED: Aspirin 81 MG Chew PO SCH (09:00)
[2024-08-07] MEDS ORDERED: Metoprolol Tartrate 1 MG/ML 5 ML VIAL IV ONE (09:00)
[2024-08-07] MEDS ORDERED: Insulin Human Lispro 100 Units/ML 3ML Syringe SC SCH (11:30)
[2024-08-07 12:30] VITALS: BP 136/87
[2024-08-07] MEDS ORDERED: Dose Adjust by Pharmacy XX STA ×2 (16:53→23:38)
--- NOTE | 2024-08-07 18:40 | NUR ---
SHIFT SUMMARY: PT A&OX4. FOLLOWS COMMANDS AND MAKES NEEDS KNOWN TO STAFF. PT DID NOT GET OUT OUT OF BED TODAY DUE TO TACHYCARDIA AND SOB WITH ANY AMOUNT OF EXERTION. PT WAS STARTED ON A HEPARIN DRIP THIS AM THAT WAS TITRATED UP THIS AFTERNOON PER PHARMACY. PT WAS GIVEN METOPROLOL THIS AM WITH DIG DUE TO BEING IN AFIB RVR AND SUSTAINING. PTS HR IS NOW TRENDING IN THE 100'S. DENIES ANY CP OR SOB. CARDIOLOGY SAW PT THIS AM AND IS PLANNING FOR AN ANGIO TOMORROW OR WEDNESDAY. SANDOR REMAINS IN PLACE FOR ACCURATE I&O'S PER PROVIDER TODAY. PT HAS HAD AN ADEQUATE AMOUNT OF URINE OUTPUT TODAY. NO ACUTE NEURO CHANGES. NO OTHER SIGNIFICANT EVENTS HAPPENED DURING THIS SHIFT. WILL CONTINUE TO CARE FOR PT TILL END OF SHIFT.
[2024-08-07 19:31] VITALS: BP 120/60
--- NOTE | 2024-08-07 21:21 | NUR ---
ASSUMPTION OF CARE AFTER RECEIVING REPORT FROM STEW CHILDRESS, THIS RN ASSUMED CARE AT APPROX 1915. PATIENT SLEEPING DURING INITIAL ENCOUNTER, EASILY AROUSABLE WITH VERBAL STIMULI. ANSWERS ORIENTATION QUESTIONS APPROPRIATELY. PERRLA. IS [place] - HEARING AIDES AT BEDSIDE. MOVES ALL EXTREMITIES EQUALLY WITH GENERALIZED WEAKNESS T/O. BEDREST AT THIS TIME. IS LETHARGIC. AFEBRILE. DENIES PAIN AT THIS TIME. TELEMETRY SHOWING AFIB 90s-110s WITH OCCASIONAL INCREASES TO 120s. BP STABLE, SBP 120s. DENIES CHEST PAIN, PRESSURE. DOES REPORT MILD SHORTNESS OF BREATH AT REST. PO METOPROLOL ADMINISTERED PER EMAR. +1 EDEMA TO BLE. HEPARIN GTT INFUSING PER EMAR. ON 2L VIA NC, SATs >90%. PATTEN CATHETER IN PLACE FOR STRICT I/Os. DRAINING YELLOW URINE TO GRAVITY. Q2H REPOSITIONING. CALL LIGHT IN REACH.
[2024-08-07 23:48] VITALS: BP 138/88
[2024-08-08 02:43] VITALS: BP 134/78
--- NOTE | 2024-08-08 05:31 | NUR ---
SHIFT SUMMARY NO ACUTE EVENTS SINCE ASSUMPTION OF CARE. PATIENT SLEPT THROUGHOUT NIGHT, EASILY AROUSABLE WITH VERBAL STIMULI. TELEMETRY SHOWING AFIB 90s-100s WHILE AWAKE. RATE 60s-80s WITH SLEEP. BP STABLE, SBP 130s. MAP >65. DENIES CHEST PAIN, PRESSURE. SHORTNESS OF BREATH AT REST IMPROVED. HEPARIN GTT INFUSING PER EMAR. REMAINS ON 2L VIA NC, SATs >90%. ATTEMPTED TO TITRATE TO ROOM AIR, BUT SATs <88% ON ROOM AIR WHILE SLEEPING. OCCASIONAL NONPRODUCTIVE COUGH. PATTEN CATHETER DRAINING YELLOW URINE TO GRAVITY. NO BM THIS SHIFT. IS ABLE TO REPOSITION HIMSELF MOSTLY IN BED, BUT Q2H REPOSITIONING FOR LARGER POSITION CHANGES. CALL LIGHT IN REACH. WILL CONTINUE TO MONITOR AND REPORT TO ONCOMING RN.
[2024-08-08] MEDS ORDERED: Pantoprazole Sodium 20 MG Tab PO SCH (06:00)
[2024-08-08 06:03] LABS: BASOPHILS ABSOLUTE AUTO 0.06 K/mm3 (0.00-0.23); BASOPHILS PERCENT AUTO 1 % (0-2); EOSINOPHILS ABSOLUTE AUTO 0.15 K/mm3 (0.00-0.68); EOSINOPHILS PERCENT AUTO 1 % (0-6); Hemoglobin 11.8 g/dL (13.5-17.5); IMMATURE GRAN ABSOLUTE AUTO 0.06 K/mm3 (0.00-0.10); IMMATURE GRAN PERCENT AUTO 1 % (0-1); LYMPHOCYTES ABSOLUTE AUTO 1.43 K/mm3 (0.84-5.20); LYMPHOCYTES PERCENT AUTO 13 % (21-46); MONOCYTES ABSOLUTE AUTO 0.99 K/mm3 (0.16-1.47); MONOCYTES PERCENT AUTO 9 % (4-13); Mean Corpuscular HGB 31.1 pg (26.0-34.0); Mean Corpuscular HGB Conc 32.8 g/dL (31.5-36.5); Mean Corpuscular Volume 95 fL (80-100); Mean Platelet Volume 9.5 fL (9.1-12.4); NEUTROPHILS PERCENT AUTO 75 % (41-73); Platelet Count 321 K/mm3 (150-400); RDW Coefficient Variation 12.8 % (11.7-14.2); RDW Standard Deviation 44.9 fL (35.1-46.3); Red Blood Cell Count 3.79 M/mm3 (4.30-5.90); White Blood Cell Count 10.89 K/mm3 (4.00-11.30)
[2024-08-08 06:29] LABS: Magnesium, Blood 2.2 mg/dL (1.6-2.4)
[2024-08-08 06:30] LABS: Albumin, Blood 2.2 g/dL (3.4-5.0); Albumin/Globulin Ratio 0.5 (0.8-1.8); Bilirubin, Total 0.5 mg/dL (0.1-1.0); Bun/Creatinine Ratio 31.9 (12.0-20.0); Calcium, Blood 8.7 mg/dL (8.5-10.1); Creatinine, Blood 1.19 mg/dL (0.60-1.20); Globulin, Blood 4.3 g/dL (2.2-4.0); Potassium, Blood 3.6 mmol/L (3.5-5.5); Total Protein, Blood 6.5 g/dL (6.4-8.2)
[2024-08-08] MEDS ORDERED: Dose Adjust by Pharmacy XX STA ×3 (07:25→20:47)
[2024-08-08] MEDS ORDERED: Heparin Sodium 5000 Units/ML 1ML MDV IV ONE ×3 (07:30→20:50)
[2024-08-08 08:12] VITALS: BP 136/63
[2024-08-08] MEDS ORDERED: Metoprolol Succinate 25 MG TABCR PO ONE (09:45)
[2024-08-08 13:43] VITALS: BP 107/83
--- NOTE | 2024-08-08 17:27 | NUR ---
END OF SHIFT SUMMARY: PT A&OX4 AND HEARD OF HEARING, DOES HAVE HEARINGS AIDS WITH HIM, AND ACTIVE IN HIS CARE. SATTING >92% ON 2 LITERS VIA NASAL CANNULA. ON TELE SHOWING AFIB WITH RATE IN 80'S, DOES TACH UP WITH EXERTION. TODAY WHEN WORKING WITH PT TACH'D UP TO 150 BUT WAS ABLE TO RECOVER QUICKLY. IS 1 PERSON ASSIST AND THEY RECOMMEND A SNIF UPON DISCHARGE. NEEDED COVERAGE FOR BLOOD SUGARS TODAY AND IS AWARE HE WILL BECOME NPO AT MIDNIGHT FOR AN ANGIOGRAM TOMORROW SOMETIME. HEPARIN GTT RUNNING AT 25UNITS TODAY WITH TWO BOLUS GIVEN PER PHARMACY AND EMAR. HAS BEEN AT BEDSIDE AND FAMILY CAME TODAY. WILL REPORT TO ONCOMING LEAF TINNER RN.
[2024-08-08] MEDS ORDERED: Spironolactone 25 MG Tab PO SCH (18:00)
[2024-08-08 19:16] VITALS: BP 113/72
--- NOTE | 2024-08-08 20:16 | NUR ---
ASSUMPTION OF CARE AFTER RECEIVING REPORT FROM TARYN CHILDRESS, THIS RN ASSUMED CARE AT APPROX 1915. PATIENT ALERT AND ORIENTED X4. IS [place] W/ HEARING AIDES AT BEDSIDE. PERRLA. MOVES ALL EXTREMITIES EQUALLY W/ GENERALIZED WEAKNESS. COMMUNICATES NEEDS EFFECTIVELY. RECEPTIVE TO EDUCATION, ASKS FREQUENT QUESTIONS REGARDING PLAN OF CARE. TELEMETRY SHOWING AFIB 80s-90s. BP STABLE, SBP 110s. MAP >65. RATE INCREASES W/ MOBILITY. SCHEDULED PO METOPROLOL ADMINISTERED PER EMAR. DENIES CHEST PAIN, PRESSUE W/ INCREASES. MILD SHORTNESS OF BREATH. NPO AT MIDNIGHT FOR ANGIO TOMORROW. HEPARIN GTT INFUSING PER EMAR. ON 2L VIA NC, SATs >90%. UP TO CHAIR OR RESTROOM WITH ONE PERSON ASSIST FWW. PATTEN CATHETER IN PLACE DRAINING YELLOW URINE TO GRAVITY. CALL LIGHT IN REACH.
[2024-08-08] MEDS ORDERED: Metoprolol Succinate 50 MG TABCR PO SCH (21:00)
--- NOTE | 2024-08-08 21:12 | NUR ---
MD DUMONT ROUNDING ON UNIT. PATIENT WITHOUT MORNING LAB ORDERS, DISCUSSED WITH MD. ALAS TO REVIEW CHART AND PLACE ORDERS.
[2024-08-08 23:09] VITALS: BP 129/69
[2024-08-09 03:34] VITALS: BP 132/68
[2024-08-09] MEDS ORDERED: Dose Adjust by Pharmacy XX STA ×2 (04:06→10:30)
--- NOTE | 2024-08-09 05:08 | NUR ---
SHIFT SUMMARY NO ACUTE EVENTS SINCE ASSUMPTION OF CARE NOTE. PATIENT SLEPT THROUGHOUT NIGHT, EASILY AROUSABLE WITH VERBAL STIMULI. REPOSITIONING HIMSELF IN BED WITH MINIMAL TO NO ASSIST FROM STAFF. TELEMETRY SHOWING AFIB 50s-60s WITH SLEEP. RATE INCREASE 70s-80s WHEN AWAKE. BP STABLE, SBP 110s-130s. MAP >65. NPO SINCE MIDNIGHT FOR ANGIO TODAY. HEPARIN GTT TITRATED PER PHARMACY. REMAINS ON 2L VIA NC, SATs >90%. PATTEN CATHETER DRAINING YELLOW URINE TO GRAVITY. NO BM THIS SHIFT. CALL LIGHT IN REACH. WILL CONTINUE TO MONITOR AND REPORT TO ONCOMING RN.
[2024-08-09 05:35] LABS: Bun/Creatinine Ratio 31.9 (12.0-20.0); Calcium, Blood 8.9 mg/dL (8.5-10.1); Creatinine, Blood 1.38 mg/dL (0.60-1.20); Potassium, Blood 3.9 mmol/L (3.5-5.5)
[2024-08-09 07:21] VITALS: BP 129/69
[2024-08-09 10:18] LABS: BASOPHILS ABSOLUTE AUTO 0.05 K/mm3 (0.00-0.23); BASOPHILS PERCENT AUTO 1 % (0-2); EOSINOPHILS ABSOLUTE AUTO 0.32 K/mm3 (0.00-0.68); EOSINOPHILS PERCENT AUTO 4 % (0-6); Hematocrit 34.8 % (37.0-53.0); Hemoglobin 11.4 g/dL (13.5-17.5); IMMATURE GRAN ABSOLUTE AUTO 0.04 K/mm3 (0.00-0.10); IMMATURE GRAN PERCENT AUTO 0 % (0-1); LYMPHOCYTES PERCENT AUTO 13 % (21-46); MONOCYTES ABSOLUTE AUTO 0.74 K/mm3 (0.16-1.47); MONOCYTES PERCENT AUTO 8 % (4-13); Mean Corpuscular HGB 31.9 pg (26.0-34.0); Mean Corpuscular HGB Conc 32.8 g/dL (31.5-36.5); Mean Corpuscular Volume 98 fL (80-100); Mean Platelet Volume 9.5 fL (9.1-12.4); NEUTROPHILS ABSOLUTE AUTO 6.65 K/mm3 (1.96-9.15); NEUTROPHILS PERCENT AUTO 74 % (41-73); Platelet Count 311 K/mm3 (150-400); RDW Coefficient Variation 12.6 % (11.7-14.2); RDW Standard Deviation 45.1 fL (35.1-46.3); Red Blood Cell Count 3.57 M/mm3 (4.30-5.90)
[2024-08-09 11:57] VITALS: BP 144/78
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
[2024-08-09 15:57] VITALS: BP 118/68
--- NOTE | 2024-08-09 17:31 | NUR ---
END OF SHIFT SUMMARY: PT IS ALERT AND ORIENTED X4 AND ACTIVE IN HIS CARE. SATTING >92% ON 2 LITERS VIA NASAL CANNULA. ON TELE SHOWING AFIB WITH RATE IN 80'S, DID NOT TACH UP TODAY WHEN WORKING WITH PT/OT. HAD AT BEDSIDE AND WAS NPO FOR MOST OF THE DAY AWAITING ANGIOGRAM DR. TELLEZ CAME BY THEY CANCELLED IT FOR TODAY AND ARE PLANNING HIS ANGIOGRAM 08/10, HE WILL BECOME NPO AT MIDNIGHT. NEEDED COVERAGE FOR BLOOD SUGAR TODAY. DENIED RECCOMENDATION OF SNIF AND HOME HEALTH. PATTEN IS STILL PRESENT AND DRAINING PROPERLY WITH A SECURE/STERILE DEVICE BELOW BLADDER. HEPARIN IS STILL RUNNING AT 27U/KG AND A NEW BAG WAS HUNG. WILL REPORT TO ONCOMING CONCILIATOR RN.
[2024-08-09 20:00] VITALS: BP 141/75
[2024-08-09 23:42] VITALS: BP 129/61
[2024-08-10] VITALS (15 sets, daily range): BP systolic 124–163; BP diastolic 65–92
[2024-08-10 04:18] LABS: BASOPHILS ABSOLUTE AUTO 0.06 K/mm3 (0.00-0.23); BASOPHILS PERCENT AUTO 1 % (0-2); EOSINOPHILS ABSOLUTE AUTO 0.38 K/mm3 (0.00-0.68); EOSINOPHILS PERCENT AUTO 4 % (0-6); Hematocrit 34.7 % (37.0-53.0); Hemoglobin 11.2 g/dL (13.5-17.5); IMMATURE GRAN ABSOLUTE AUTO 0.07 K/mm3 (0.00-0.10); IMMATURE GRAN PERCENT AUTO 1 % (0-1); LYMPHOCYTES ABSOLUTE AUTO 1.27 K/mm3 (0.84-5.20); LYMPHOCYTES PERCENT AUTO 14 % (21-46); MONOCYTES ABSOLUTE AUTO 0.67 K/mm3 (0.16-1.47); MONOCYTES PERCENT AUTO 7 % (4-13); Mean Corpuscular HGB 31.4 pg (26.0-34.0); Mean Corpuscular HGB Conc 32.3 g/dL (31.5-36.5); Mean Corpuscular Volume 97 fL (80-100); Mean Platelet Volume 9.7 fL (9.1-12.4); NEUTROPHILS ABSOLUTE AUTO 6.57 K/mm3 (1.96-9.15); NEUTROPHILS PERCENT AUTO 73 % (41-73); Platelet Count 332 K/mm3 (150-400); RDW Coefficient Variation 12.7 % (11.7-14.2); RDW Standard Deviation 44.9 fL (35.1-46.3); Red Blood Cell Count 3.57 M/mm3 (4.30-5.90); White Blood Cell Count 9.02 K/mm3 (4.00-11.30)
[2024-08-10] MEDS ORDERED: Dose Adjust by Pharmacy XX STA (04:40)
[2024-08-10 04:49] LABS: Albumin, Blood 2.2 g/dL (3.4-5.0); Albumin/Globulin Ratio 0.5 (0.8-1.8); Bilirubin, Total 0.2 mg/dL (0.1-1.0); Bun/Creatinine Ratio 31.1 (12.0-20.0); Calcium, Blood 9.7 mg/dL (8.5-10.1); Creatinine, Blood 1.35 mg/dL (0.60-1.20); Globulin, Blood 4.3 g/dL (2.2-4.0); Potassium, Blood 4.7 mmol/L (3.5-5.5); Total Protein, Blood 6.5 g/dL (6.4-8.2)
--- NOTE | 2024-08-10 06:32 | NUR ---
SHIFT SUMMARY NEURO: A/OX4. WEAK. LUNGS: DIMINISHED IN THE BASES, ON 1LNC WHILE SLEEPING. CARDIAC: BP AND HR STABLE. ON HEPARIN GTT. NPO FOR ANGIO SINCE MIDNIGHT. GI/: PATTEN IN PLACE WITH CLEAR, YELLOW OUTPUT, AVERAGING 75-100ML/HR.
[2024-08-10] MEDS ORDERED: Furosemide 40 MG Tab PO SCH (09:00)
[2024-08-10] MEDS ORDERED: Spironolactone 25 MG Tab PO SCH (09:00)
[2024-08-10] MEDS ORDERED: Empagliflozin 25 MG TAB PO SCH (09:00)
[2024-08-10] MEDS ORDERED: FentaNYL Citrate 50 MCG/ML 2 ML Injection ONE (11:42)
[2024-08-10] MEDS ORDERED: Verapamil HCL 2.5 MG/ML 2ML Injection ONE (11:42)
[2024-08-10] MEDS ORDERED: Heparin Sodium 1000 Units/ML 10ML MDV ONE (11:43)
[2024-08-10] MEDS ORDERED: Midazolam HCl 1MG / ML 2ML Vial ONE (11:43)
[2024-08-10] MEDS ORDERED: NS 2,000 ML IV ONE (11:43)
[2024-08-10] MEDS ORDERED: NS 250 ML IV ONE (11:43)
--- NOTE | 2024-08-10 11:55 | NUR ---
Patient is sitting up in bed and his spouse Mehreen is bedside. They explain about the clinical plan for the day and the hopes and fears that they have regarding the upcoming procedure. Patient and Mehreen are easily encouraged by scripture reading and prayer and that was certainly the case during this visit as I provided both. I will continue to remain available to patient and family.
--- NOTE | 2024-08-10 12:00 | NUR ---
GONE FOR PROCEDURE PT A&O X4. VSS. SPO2 > 92% ON 1L NC. MONITOR SHOWING AFIB, HR 80s-90s. PT DENYING PAIN/DISCOMFORT. PT NPO, AWAITING ANGIOGRAM. HEPARIN GTT INFUSING PER ORDERS UNTIL MAINTENANCE PAINTER APPRENTICE STAFF TO PT RM TO TAKE PT FOR ANGIO @ APPROX 1150. PHARMACY NOTIFIED HEPARIN ON STANDBY.
--- NOTE | 2024-08-10 13:16 | NUR ---
RETURN FROM IRONWORKER PT BROUGHT BACK TO PCU-12 IN BED. PT A&O X4. VSS. SPO2 > 92% ON RA. MONITOR SHOWING AFIB, HR 80s-90s. PT W/ R ULNAR TRB IN PLACE. SITE WNL. NO BLEEDING. NO HEMATOMA. ARM BOARD IN PLACE WELL. HEPARIN GTT DC'D.
--- NOTE | 2024-08-10 18:19 | NUR ---
END OF SHIFT PT CONTINUES TO BE A&O X4. VSS. SPO2 > 92% ON RA. MONITOR SHOWING AFIB, HR 70s-90s. PT W/ R ULNAR ACCESS SITE RECOVERED WNL W/ NO BLEEDING & NO HEMATOMA. TRANSPARENT DRESSING & ARM BOARD IN PLACE. PT W/ PATTEN CATH IN PLACE. MD ORDER FOR REMOVAL TONIGHT. PT REQUESTING REMOVAL AFTER DINNER.
[2024-08-10] MEDS ORDERED: Benzonatate 100 MG Cap PO PRN (21:55)
[2024-08-11 00:06] VITALS: BP 162/83
[2024-08-11 04:01] VITALS: BP 157/89
[2024-08-11 04:40] LABS: Bun/Creatinine Ratio 31.4 (12.0-20.0); Calcium, Blood 9.6 mg/dL (8.5-10.1); Creatinine, Blood 1.21 mg/dL (0.60-1.20); Potassium, Blood 4.6 mmol/L (3.5-5.5)
--- NOTE | 2024-08-11 05:19 | NUR ---
SHIFT SUMMARY ASUMED CARE OF PT AT 1900. PT A&O4 AND COOPERATIVE IN CARE. PT REPORTS SOME PAIN BUT STATES DOES NOT WANT AND PAIN MEDS BECAUSE OF THE WAY THEY MAKE HIM FEEL. TRIED OTHER PAIN RELIEVING TECHNIQUES LIKE ICE PACK AND HEATING PAD. OUTSIDE UPHOLSTERER REPORTED PT IN AFIB RVR, DURING THIS TIME PT WAS UP AT BEDSIDE USING URINAL AND COUGHING. MEDS ORDERED FOR COUGH AND SUBSIDED. PT KEPT GOING AFIB RVR EACH TIME HE WOULD GET UP BUT WOULD SELF REGULATE SHORTLY AFTER. OUTSIDE UPHOLSTERER ALSO REPORTED ST ELEVATION, PT DENIES CHEST PAIN AND WAS LYING ON HIS SIDE, EKG COMPLETED AND NOTHING NEW REPORTED. HIPOLITO HOSE PLACED ON PT AND PT OVERALL LOOKING MORE COMFORTABLE. BED IN LOWEST POSITION AND CALL LIGHT WITHIN REACH.
[2024-08-11 07:35] VITALS: BP 150/79
[2024-08-11] MEDS ORDERED: Spironolactone 25 MG Tab PO SCH (09:00)
[2024-08-11] MEDS ORDERED: BENZ100A PO (13:20)
[2024-08-11 13:21] VITALS: BP 119/96
[2024-08-11] MEDS ORDERED: Guaifenesin Wit10 ML PO (13:21)
[2024-08-11] MEDS ORDERED: XARELTO20 MG PO (13:27)
--- NOTE | 2024-08-11 14:25 | NUR ---
DISCHARGE PT ALERT AND ORIENTED X4, CALM, COOPERATIVE TO CARE, RIGHT ULNAR SITE FROM ANGIOGRAM, TRANSPARENT TEGADERM IN PLACE, NO BLEEDING OR HEMATOMA NOTED, ARMBOARD IN PLACE. AFIB, HR IN THE 70'S-90'S, INCREASED HR IN THE 150'S WITH EXERTION, DINKEY MOTOR OPERATOR AWARE. PT ALSO W/ EPISODE OF "SHARP" CHEST PAIN THAT PT THEN REPORTING "SUBSIDING." [employer] PROVIDER AWARE AND GIVING OKAY FOR PT STILL DISCHARGING. PT W/ SCHEDULED FOLLOW UP W/ DINKEY MOTOR OPERATOR & IS REFERRED FOR A TAVR. SBP ELEVATED, MEDICATED PER EMAR, L/S CLEAR T/O, 02 >92% ON RA. +BS, URINAL AT BEDSIDE. DISCHARGE INTSTRUCTIONS REVIEWED WITH PT. PT WITH NO QUESTION OR CONCERNS. PT WAITING FOR RIDE.
[2024-08-11] MEDS ORDERED: Metoprolol Succinate 50 MG TABCR PO SCH (21:00)
== END 2024-08-11 15:29 | disposition home or self-care (01) | DRG 286 ==
LOC: ER 11:52 → PCU 15:24 → ERHOLD 15:24 → PCU 20:46
PROVIDERS: Hospitalist; Student in an Organized Health Care Education/Training Program; ADMIT Family Medicine
PROC: 4A023N8 Measurement of Cardiac Sampling and Pressure, Bilateral, Percutaneous Approach (ICD-10-PCS; principal; 2024-08-10)
PROC: B2111ZZ Fluoroscopy of Multiple Coronary Arteries using Low Osmolar Contrast (ICD-10-PCS; 2024-08-10)
DX: I11.0 Hypertensive heart disease with heart failure (principal); I50.23 Acute on chronic systolic (congestive) heart failure; J96.01 Acute respiratory failure with hypoxia; I48.19 Other persistent atrial fibrillation; Z94.81 Bone marrow transplant status; I08.0 Rheumatic disorders of both mitral and aortic valves; I27.20 Pulmonary hypertension, unspecified; I25.5 Ischemic cardiomyopathy; E11.9 Type 2 diabetes mellitus without complications; I25.10 Atherosclerotic heart disease of native coronary artery without angina pectoris; Z87.891 Personal history of nicotine dependence; Z88.8 Allergy status to other drugs, medicaments and biological substances; Z79.82 Long term (current) use of aspirin; Z79.84 Long term (current) use of oral hypoglycemic drugs; Z79.899 Other long term (current) drug therapy; Z85.79 Personal history of other malignant neoplasms of lymphoid, hematopoietic and related tissues; Z98.890 Other specified postprocedural states
CPT/HCPCS: 36415; 51702; 71046; 76937; 80048; 80053; 82947; 83735; 83880; 84100; 84484; 85025; 85520; 85610; 85730; 93005; 93010; 93460; 94762; 96374; 97110; 97116; 97161; 97167; 97530; 97535; 99152; 99285-25; A9270; C1769; C1887; C1894; J1160; J1644; J1940; J2250; J2470; J3010; J7030; J7050; Q9967

== ENCOUNTER → 2024-08-06 | Outpatient (CLI) | payer OTHER ==
[~2024-08-06] MED LIST changes: +ALDACTONE25 MG PO; +ASPI81CH PO; +AZIT250 PO; +Aspir 8181 MG PO; +DIGOX250 MCG PO; +FARXIGA10 MG PO; +FERREX 150150 M1 PO; +FURO20 PO; +Glucophage 500 mg PO; +JARDIANCE10 MG PO; +LIPITOR80 MG PO; +LOSA25 PO; +LOSARTAN POTAS100 M1 PO; +METFORMIN HCL500 M3 PO; +METO50ER PO; +METOPROLOL SUCC25 MG PO; +NITROGLYCERIN0.4 M3 SL; +PRASUGREL HCL10 MG PO; +PRAVASTATIN SOD10 M1 PO; +TRAZ50 PO; +XARELTO15 M1 PO; +XARELTO20 M1 PO
[2024-08-06 10:44] LABS: BASOPHILS ABSOLUTE AUTO 0.04 K/mm3 (0.00-0.23); BASOPHILS PERCENT AUTO 0 % (0-2); EOSINOPHILS ABSOLUTE AUTO 0.01 K/mm3 (0.00-0.68); EOSINOPHILS PERCENT AUTO 0 % (0-6); Hematocrit 34.4 % (37.0-53.0); Hemoglobin 11.4 g/dL (13.5-17.5); IMMATURE GRAN ABSOLUTE AUTO 0.05 K/mm3 (0.00-0.10); IMMATURE GRAN PERCENT AUTO 1 % (0-1); LYMPHOCYTES ABSOLUTE AUTO 0.76 K/mm3 (0.84-5.20); LYMPHOCYTES PERCENT AUTO 8 % (21-46); MONOCYTES ABSOLUTE AUTO 0.51 K/mm3 (0.16-1.47); MONOCYTES PERCENT AUTO 6 % (4-13); Mean Corpuscular HGB 31.8 pg (26.0-34.0); Mean Corpuscular HGB Conc 33.1 g/dL (31.5-36.5); Mean Corpuscular Volume 96 fL (80-100); Mean Platelet Volume 10.1 fL (9.1-12.4); NEUTROPHILS ABSOLUTE AUTO 7.74 K/mm3 (1.96-9.15); NEUTROPHILS PERCENT AUTO 85 % (41-73); Platelet Count 329 K/mm3 (150-400); RDW Coefficient Variation 13.1 % (11.7-14.2); RDW Standard Deviation 46.3 fL (35.1-46.3); Red Blood Cell Count 3.58 M/mm3 (4.30-5.90); White Blood Cell Count 9.11 K/mm3 (4.00-11.30)
[2024-08-06 10:56] LABS: Albumin, Blood 2.8 g/dL (3.4-5.0); Albumin/Globulin Ratio 0.7 (0.8-1.8); Bilirubin, Total 0.5 mg/dL (0.1-1.0); Bun/Creatinine Ratio 21.2 (12.0-20.0); Calcium, Blood 9.4 mg/dL (8.5-10.1); Creatinine, Blood 1.56 mg/dL (0.60-1.20); Globulin, Blood 4.3 g/dL (2.2-4.0); Potassium, Blood 4.2 mmol/L (3.5-5.5); Total Protein, Blood 7.1 g/dL (6.4-8.2)
== END ==
LOC: LAB 10:40 → LAB SHORT 10:40
PROVIDERS: Physician Assistant
DX: R07.9 Chest pain, unspecified (principal)
CPT/HCPCS: 80053; 83690; 83880; 84484; 85025

== ENCOUNTER → 2024-11-26 | Outpatient (CLI) | payer OTHER ==
[~2024-11-26] MED LIST changes: +ALDACTONE25 MG PO; +ASPI81CH PO; +BENZ100A PO; +FERREX 150150 M1 PO; +Glucophage 500 mg PO; +Guaifenesin Wit10 ML PO; +LOSARTAN POTAS100 M1 PO; +METO50ER PO; +PRAVASTATIN SOD10 M1 PO; +TRAZ50 PO; +XARELTO15 M1 PO; +XARELTO20 MG PO
[2024-11-27 16:28] LABS: Protein, Urine Quantitative 232.4 mg/dL (0.0-11.9)
== END ==
LOC: LAB SHORT 07:30 → LAB 07:30 → LAB FUT 11-21 11:45
PROVIDERS: Internal Medicine Nephrology
DX: N18.30 Chronic kidney disease, stage 3 unspecified (principal); D63.1 Anemia in chronic kidney disease; N25.81 Secondary hyperparathyroidism of renal origin; E55.9 Vitamin D deficiency, unspecified; E29.1 Testicular hypofunction; R76.9 Abnormal immunological finding in serum, unspecified; R94.5 Abnormal results of liver function studies; R94.6 Abnormal results of thyroid function studies; D51.8 Other vitamin B12 deficiency anemias; D52.8 Other folate deficiency anemias; D50.9 Iron deficiency anemia, unspecified
CPT/HCPCS: 81050; 82043; 82570; 84156

== ENCOUNTER → 2024-12-04 | Outpatient (CLI) | payer OTHER ==
[2024-12-04 16:23] LABS: BASOPHILS ABSOLUTE AUTO 0.07 K/mm3 (0.00-0.23); BASOPHILS PERCENT AUTO 1 % (0-2); EOSINOPHILS PERCENT AUTO 1 % (0-6); Hemoglobin 12.4 g/dL (13.5-17.5); IMMATURE GRAN ABSOLUTE AUTO 0.03 K/mm3 (0.00-0.10); IMMATURE GRAN PERCENT AUTO 0 % (0-1); LYMPHOCYTES ABSOLUTE AUTO 1.59 K/mm3 (0.84-5.20); LYMPHOCYTES PERCENT AUTO 22 % (21-46); MONOCYTES ABSOLUTE AUTO 0.54 K/mm3 (0.16-1.47); MONOCYTES PERCENT AUTO 8 % (4-13); Mean Corpuscular HGB 31.9 pg (26.0-34.0); Mean Corpuscular HGB Conc 33.5 g/dL (31.5-36.5); Mean Corpuscular Volume 95 fL (80-100); Mean Platelet Volume 9.4 fL (9.1-12.4); NEUTROPHILS PERCENT AUTO 67 % (41-73); Platelet Count 290 K/mm3 (150-400); RDW Coefficient Variation 14.2 % (11.7-14.2); RDW Standard Deviation 49.1 fL (35.1-46.3); Red Blood Cell Count 3.89 M/mm3 (4.30-5.90); White Blood Cell Count 7.13 K/mm3 (4.00-11.30)
== END ==
LOC: LAB SHORT 15:39 → LAB 15:39
PROVIDERS: Internal Medicine Hematology & Oncology
DX: E85.9 Amyloidosis, unspecified (principal)
CPT/HCPCS: 85025

== ENCOUNTER → 2024-12-31 | Outpatient (CLI) | payer OTHER ==
[2025-01-01 16:22] LABS: Creatinine Urine 26.1 mg/dL (27.00-270.00); Protein, Urine Quantitative 144.2 mg/dL (0.0-11.9)
== END ==
LOC: LAB 13:49 → LAB SHORT 13:49 → LAB FUT 12-28 15:40
PROVIDERS: Internal Medicine Nephrology
DX: N18.30 Chronic kidney disease, stage 3 unspecified (principal); D75.1 Secondary polycythemia; N25.81 Secondary hyperparathyroidism of renal origin; E78.00 Pure hypercholesterolemia, unspecified; R76.9 Abnormal immunological finding in serum, unspecified; R94.5 Abnormal results of liver function studies; G60.9 Hereditary and idiopathic neuropathy, unspecified; D51.8 Other vitamin B12 deficiency anemias; D52.8 Other folate deficiency anemias; D50.9 Iron deficiency anemia, unspecified; N40.1 Benign prostatic hyperplasia with lower urinary tract symptoms
CPT/HCPCS: 81050; 82043; 82570; 84156

== ENCOUNTER → 2025-02-05 | Outpatient (CLI) | payer OTHER | END | disposition home or self-care (01) | LOC: LAB SHORT 07:55 → LAB 07:55 | DX: E85.3 Secondary systemic amyloidosis (principal) | CPT/HCPCS: 88305; 88313 ==

== ENCOUNTER → 2025-02-28 | Outpatient (CLI) | payer OTHER ==
[2025-02-28 14:31] LABS: Protein, Urine Quantitative 237.4 mg/dL (0.0-11.9)
== END | disposition home or self-care (01) ==
LOC: LAB SHORT 09:23 → LAB 09:23
PROVIDERS: Internal Medicine Nephrology
DX: N18.30 Chronic kidney disease, stage 3 unspecified (principal); D63.1 Anemia in chronic kidney disease; D75.1 Secondary polycythemia; N25.81 Secondary hyperparathyroidism of renal origin; E55.9 Vitamin D deficiency, unspecified; E78.00 Pure hypercholesterolemia, unspecified; R76.9 Abnormal immunological finding in serum, unspecified; R94.5 Abnormal results of liver function studies; R94.6 Abnormal results of thyroid function studies
CPT/HCPCS: 81050; 82043; 82570; 84156

== ENCOUNTER 2025-04-25 10:07 | Day surgery (SDC) | payer OTHER ==
[~2025-04-25] VITALS: Ht 175.3 cm; Wt 73.9 kg
[~2025-04-25 10:07] MED LIST changes: +Balanced Salt Epinephrine Irrigation Solution 500 mL IR SCH; +Moxifloxacin HCL 0.5 MG/0.1 ML 0.4MLSYR LEFTEYE SCH; +Ondansetron 4 MG SoluTab MM PRN; +PHENYLEPHRINE\\TROPICAMIDE\\TETRACAINE OPHTHALMIC DILATING SOLN LEFTEYE PRN; +Povidone-Iodine 450 DROP/30 ML Solution LEFTEYE SCH; +Povidone-Iodine 450 DROP/30 ML Solution ONE; +Tetracaine HCl/Pf 0.5% Opth Soln 4 ml ONE
[2025-04-25] MEDS ORDERED: NS 500 ML IV ONE (10:39)
[2025-04-25] MEDS ORDERED: Midazolam HCl 1MG / ML 2ML Vial ONE (11:13)
[2025-04-25 11:32] VITALS: BP 104/68
[2025-04-26] MEDS ORDERED: Povidone-Iodine 450 DROP/30 ML Solution LEFTEYE SCH (06:00)
[2025-04-26] MEDS ORDERED: Balanced Salt Epinephrine Irrigation Solution 500 mL IR SCH (06:00)
[2025-04-26] MEDS ORDERED: PHENYLEPHRINE\\TROPICAMIDE\\TETRACAINE OPHTHALMIC DILATING SOLN LEFTEYE PRN (06:00)
[2025-04-26] MEDS ORDERED: Moxifloxacin HCL 0.5 MG/0.1 ML 0.4MLSYR LEFTEYE SCH (06:00)
== END 2025-04-25 12:02 | disposition home or self-care (01) ==
LOC: ORSCSDS 10:07
PROVIDERS: Student in an Organized Health Care Education/Training Program
PROC: 08RK3JZ Replacement of Left Lens with Synthetic Substitute, Percutaneous Approach (ICD-10-PCS; principal; 2025-04-25 11:30)
DX: E11.36 Type 2 diabetes mellitus with diabetic cataract (principal); H25.813 Combined forms of age-related cataract, bilateral; Z87.891 Personal history of nicotine dependence; R76.0 Raised antibody titer; J44.9 Chronic obstructive pulmonary disease, unspecified; E11.22 Type 2 diabetes mellitus with diabetic chronic kidney disease; I12.9 Hypertensive chronic kidney disease with stage 1 through stage 4 chronic kidney disease, or unspecified chronic kidney disease; N18.2 Chronic kidney disease, stage 2 (mild); E78.5 Hyperlipidemia, unspecified; I25.2 Old myocardial infarction; Z79.82 Long term (current) use of aspirin; Z79.84 Long term (current) use of oral hypoglycemic drugs; Z79.899 Other long term (current) drug therapy
CPT/HCPCS: 82947; J2250; V2632

== ENCOUNTER 2025-05-01 08:52 | Day surgery (SDC) | payer OTHER ==
[~2025-05-01] VITALS: Ht 175.3 cm; Wt 73.9 kg
[~2025-05-01 08:52] MED LIST changes: -Moxifloxacin HCL 0.5 MG/0.1 ML 0.4MLSYR LEFTEYE SCH; +Moxifloxacin HCL 0.5 MG/0.1 ML 0.4MLSYR RIGHTEYE SCH; +NS 500 ML IV ONE; -Ondansetron 4 MG SoluTab MM PRN; -PHENYLEPHRINE\\TROPICAMIDE\\TETRACAINE OPHTHALMIC DILATING SOLN LEFTEYE PRN; +PHENYLEPHRINE\\TROPICAMIDE\\TETRACAINE OPHTHALMIC DILATING SOLN RIGHTEYE PRN; -Povidone-Iodine 450 DROP/30 ML Solution LEFTEYE SCH; +Povidone-Iodine 450 DROP/30 ML Solution RIGHTEYE SCH
[2025-05-01] MEDS ORDERED: NS 500 ML IV ONE (09:11)
[2025-05-01] MEDS ORDERED: Midazolam HCl 1MG / ML 2ML Vial ONE (10:13)
[2025-05-01 10:32] VITALS: BP 130/65
== END 2025-05-01 10:54 | disposition home or self-care (01) ==
LOC: ORSCSDS 08:52
PROVIDERS: Student in an Organized Health Care Education/Training Program
PROC: 08RJ3JZ Replacement of Right Lens with Synthetic Substitute, Percutaneous Approach (ICD-10-PCS; principal; 2025-05-01 10:30)
DX: E11.36 Type 2 diabetes mellitus with diabetic cataract (principal); H25.811 Combined forms of age-related cataract, right eye; Z96.1 Presence of intraocular lens; Z87.891 Personal history of nicotine dependence; J44.89 Other specified chronic obstructive pulmonary disease; K21.9 Gastro-esophageal reflux disease without esophagitis; Z95.0 Presence of cardiac pacemaker; I48.91 Unspecified atrial fibrillation; E11.22 Type 2 diabetes mellitus with diabetic chronic kidney disease; I12.9 Hypertensive chronic kidney disease with stage 1 through stage 4 chronic kidney disease, or unspecified chronic kidney disease; N18.2 Chronic kidney disease, stage 2 (mild); Z79.84 Long term (current) use of oral hypoglycemic drugs; Z79.899 Other long term (current) drug therapy
CPT/HCPCS: 82947; J2003; J2250; J7040; V2632

== ENCOUNTER → 2025-08-21 | Outpatient (CLI) | payer OTHER ==
[~2025-08-21] MED LIST changes: +ALBU90OI INH; +Acetaminophen325 M1 PO; -Balanced Salt Epinephrine Irrigation Solution 500 mL IR SCH; +ENTRESTO 24 MG1 EACH PO; +ENTRESTO 49 MG1 EACH PO; +EZET10 PO; -Moxifloxacin HCL 0.5 MG/0.1 ML 0.4MLSYR RIGHTEYE SCH; -NS 500 ML IV ONE; -PHENYLEPHRINE\\TROPICAMIDE\\TETRACAINE OPHTHALMIC DILATING SOLN RIGHTEYE PRN; -Povidone-Iodine 450 DROP/30 ML Solution ONE; -Povidone-Iodine 450 DROP/30 ML Solution RIGHTEYE SCH; +TORSE20 PO; -Tetracaine HCl/Pf 0.5% Opth Soln 4 ml ONE
[2025-08-21 14:43] LABS: BASOPHILS ABSOLUTE AUTO 0.05 K/mm3 (0.00-0.23); BASOPHILS PERCENT AUTO 1 % (0-2); EOSINOPHILS ABSOLUTE AUTO 0.04 K/mm3 (0.00-0.68); EOSINOPHILS PERCENT AUTO 1 % (0-6); Hematocrit 18.5 % (37.0-53.0); Hemoglobin 6.1 g/dL (13.5-17.5); IMMATURE GRAN ABSOLUTE AUTO 0.05 K/mm3 (0.00-0.10); IMMATURE GRAN PERCENT AUTO 1 % (0-1); LYMPHOCYTES ABSOLUTE AUTO 0.70 K/mm3 (0.84-5.20); LYMPHOCYTES PERCENT AUTO 8 % (21-46); MONOCYTES ABSOLUTE AUTO 0.51 K/mm3 (0.16-1.47); MONOCYTES PERCENT AUTO 6 % (4-13); Mean Corpuscular HGB Conc 33.0 g/dL (31.5-36.5); Mean Corpuscular Volume 97 fL (80-100); NEUTROPHILS ABSOLUTE AUTO 7.25 K/mm3 (1.96-9.15); NEUTROPHILS PERCENT AUTO 84 % (41-73); NRBC ABSOLUTE 0.00 K/mm3 (0.00-0.02); NRBC Auto 0.0 /100 WBC (0.0-0.2); Platelet Count 385 K/mm3 (150-400); RDW Coefficient Variation 13.7 % (11.7-14.2); RDW Standard Deviation 48.9 fL (35.1-46.3)
[2025-08-21 15:02] LABS: Alanine Aminotransfer (ALT/SGP 24.0 U/L (12-78); Albumin, Blood 2.2 g/dL (3.4-5.0); Albumin/Globulin Ratio 0.6 (0.8-1.8); Anion Gap 15.0 mmol/L (3-11); Aspartate Aminotrans (AST/SGOT 15.0 U/L (12-37); Bilirubin, Total 0.3 mg/dL (0.1-1.0); Blood Urea Nitrogen 64.0 mg/dL (8-24); CO2, Blood 18.0 mmol/L (21-32); Calcium, Blood 8.7 mg/dL (8.5-10.1); Chloride, Blood 100.0 mmol/L (98-108); Creatinine, Blood 2.21 mg/dL (0.60-1.20); Globulin, Blood 3.8 g/dL (2.2-4.0); Glucose, Blood 218.0 mg/dL (70-99); Potassium, Blood 4.5 mmol/L (3.5-5.5); Sodium, Blood 128.0 mmol/L (136-145); Thyroid Stimulating Hormone 4.01 uIU/mL (0.360-4.800); Total Protein, Blood 6.0 g/dL (6.4-8.2)
== END ==
LOC: LAB SHORT 14:17 → LAB 14:17
PROVIDERS: Physician Assistant
DX: R06.02 Shortness of breath (principal); R10.84 Generalized abdominal pain; R53.83 Other fatigue
CPT/HCPCS: 80053; 83605; 83690; 83880; 84443; 84484; 85025